=== PATIENT | female | born 1960 | race Caucasian/White ===

== ENCOUNTER 2016-12-15 06:05 | Inpatient (IN) | payer OTHER ==
[~2016-12-15 06:05] MED LIST: CLINDAMYCIN PHOSPHATE 900 MG in DEXTROSE 5 % IN WATER 100 ML IV PRN; RINGER'S SOLUTION,LACTATED 1,000 ML IV PRN; ROPIVACAINE HCL/PF 100 MG, EPINEPHrine 0.2 MG in NORMAL SALINE 100 ML IJ PRN; TRANEXAMIC ACID 1,000 MG in NORMAL SALINE 100 ML IV PRN
[2016-12-15] MEDS ORDERED: RINGER'S SOLUTION,LACTATED 1,000 ML IV ONE ×2 (09:01→10:00)
[2016-12-15] MEDS ORDERED: ZOLPIDEM TARTRATE 5 MG TABLET PO PRN (09:58)
[2016-12-15] MEDS ORDERED: MAG HYDROX/ALUMINUM HYD/SIMETH 30 ML UDC PO PRN (09:58)
[2016-12-15] MEDS ORDERED: DEXTROSE 5%-LACTATED RINGERS 1,000 ML IV PRN (09:58)
[2016-12-15] MEDS ORDERED: MAGNESIUM HYDROXIDE 30 ML UDC PO PRN (09:58)
[2016-12-15] MEDS ORDERED: PROMETHAZINE HCL 5 MG in DEXTROSE 5 % IN WATER 50 ML IV PRN ×2 (09:58)
[2016-12-15] MEDS ORDERED: ONDANSETRON HCL/PF 2 MG/ML VIAL IV PRN (09:58)
[2016-12-15] MEDS ORDERED: BUTORPHANOL TARTRATE NS PRN (10:00)
--- NOTE | 2016-12-15 10:02 | OR ---
Operative Report - Dictated Report Narrative: Date: 12/15/2016 Preoperative diagnosis: Left Knee degenerative joint disease. Postoperative diagnosis: Left Knee degenerative joint disease. Procedure: Left Total knee arthroplasty. Surgeon: Geoffrey Hyde M.D. Dump Grader: Yassine Donaldson PA-C Anesthesia: Spinal with regional block and local periarticular joint injection. Complications: None Specimens: Bone for disposal. Estimated blood loss: Minimal. Tourniquet time: 72 Minutes at 350 millimeters of mercury. Retained implants: Depuy Attune size 6 left lugged cemented posterior stabilized femoral component. Size 5 fixed-bearing cemented tibial platform. 6 by 5 millimeter posterior stabilized cross-linked tibial insert. 38 millimeter medialized patella button. Indications: Mrs. Ocampo is a 56-year-old female who has had long-standing left knee pain and arthrosis. This patient was followed in my clinic for period of time with significant complaints of left knee pain consistent with arthritic changes. She had failed conservative measures including, but not limited to, activity modification, passage of time, medications, and other conservative measures. Patient wished to proceed with surgical treatment. The risks, benefits, and alternatives were discussed in clinic. The risks of , blood clots, bleeding, infection, nerve/tendon blood vessel/ injury, malposition of components, intraoperative fracture, postoperative limited range of motion, persistent pain, failure of components, and need for additional procedures. Patient wished to proceed consent was obtained after answering all questions. Procedure: After marking the correct extremity on the floor, the patient was taken to the operating room. A timeout was performed. IV antibiotics consisting of clindamycin were administered prior to the procedure. A regional followed by spinal anesthetic was induced by anesthesia, per my request, on the operative table with all bony prominences well-padded. Ugo catheter was placed, and a bump was placed under the operative side buttock. SCDs and DAGO hose were utilized on the nonoperative leg. A well-padded tourniquet was applied to the operative thigh. The operative leg was then pre-scrubbed with alcohol prepped, and draped in a standard sterile fashion. After exsanguinating the extremity with an Esmarch bandage, the tourniquet was inflated. After marking out the anterior knee for standard incision centered over the patella, the skin was incised and dissected down to the joint retinaculum. The joint retinaculum was marked out as well as the horizontal axis of the patella, and a standard medial parapatellar arthrotomy was then made. The most proximal aspect of the quadriceps tendon and the patella tendon insertion were protected from release. A partial synovectomy was performed as well as a resection of the infrapatellar fat pad. The distal femoral fat pad proximal to the trochlea was also resected using cautery. The soft tissues were elevated off the medial aspect of the proximal tibia using a Alejandro elevator ensuring that we did not transect the medial collateral ligament. Upon initial evaluation range of motion was approximately 0 degrees to 120 degrees of flexion. There were signs of advanced arthrosis in the medial, lateral, patellofemoral joint spaces. There were large marginal osteophytes which were removed with a rongeur. The knee was hyperflexed and the patella was tucked laterally. Protecting the surrounding soft tissues with Homans, an entry drill was placed down the femoral canal using Whitesides line for guidance into the entry point. The intramedullary femoral alignment ewa was utilized in order to cut the distal femur in 5 degrees of valgus resecting 10 millimeters of bone. Next the distal femur was sized to a size 6. A posterior referencing guide was utilized to place the distal femoral cutting block in 3 degrees of external rotation. This was pinned into place. The rotation was confirmed both visually and based on anatomic landmarks. The 4 in 1 cutting jig of the appropriate size was utilized in order to make all bony cuts. The angle wing was used to ensure no notching. Retractors were utilized in order to protect surrounding soft tissues. This cut did not result in any excessive notching. We then cut the box centered over the distal femur. This allowed for resection of the anterior and posterior cruciate ligaments. I then turned my attention to the preparation of the tibia. Using an extra medullary tibial alignment ewa, 2 millimeters of bone was resected off the medial articular surface. This was made perpendicular to the mechanical axis of the joint with the alignment ewa centered over the ankle mortise. The alignment ewa was checked and was noted to be parallel to the mechanical axis, centered over the medial one third of the tibial tubercle, paralleling the anterior surface of the tibia. We then turned our attention to the remaining meniscus and soft tissues. These were removed while protecting the surrounding ligaments and soft tissues. The marginal osteophytes off the anterior, posterior, medial, lateral aspects of the femur and tibia were removed. The tibia was sized out to a size 5. Next the tibia was drilled and punched in an externally rotated position. Next the trial femur and a series of tibial inserts were utilized in order to allow for full extension and maximal flexion. It was found that a 5 millimeter insert gave the best range of motion and stability at multiple flexion points as well as at full extension there was less than 2 mm of gapping both medially and laterally. There is minimal anterior translation with the knee at 90 degrees of flexion and no signs of being able to dislocate the knee. The patella was then prepared. The initial thickness was 22 millimeters. This was reamed down to 11 millimeters parallel to the anterior surface of the patella. It was sized out to a size 38 medialized patella button. This was then drilled and trialed. Without any medial restraint the patella tracked appropriately and did not sublux or dislocate. At this point, it was felt these were the appropriate sized implants, and all trials were removed. The standard periarticular joint injection consisting of ropivacaine and epinephrine were injected into the periarticular joint tissues. The bony surfaces were thoroughly irrigated with a pulsatile-suction saline irrigation device. A bone plug from the prior resected anterior chamfer cut was placed into the drill hole at the distal femur. The bony surfaces were then dried in preparation for placement of the implants. The cement was vacuum mixed per the silver lap machine tender's instructions. The cement was placed on the dry bony surfaces and posterior aspect of the implants. The implants were impacted into place, removing all extruded cement. At this point anesthesia administered tranexamic acid per protocol intravenously. The knee was placed in extension with axial loading with the trial insert while the cement cured. Once the cement cured, all remaining extruded cement was removed. The knee was placed through a range of motion with the trial insert to ensure appropriate range of motion and stability. Final range of motion was approximately 0 to 120 degrees. The knee was again thoroughly irrigated with pulsatile saline lavage. The final polyethylene insert was then impacted into place ensuring no retained soft tissues. The remaining periarticular joint injection was injected. A medium Hemovac drain was placed exiting superior laterally. The knee was then placed over a triangle and the arthrotomy was closed with interrupted #1 Vicryl after thoroughly irrigating the joint. The deep and subcutaneous tissues were closed with interrupted 0 and 3-0 Vicryl respectively. Skin was closed with a running subcutaneous 3-0 Monocryl and Prineo Dermabond dressing. 4 x 4's, Sof-Rol, and a full leg Jose wrap were applied. All sponge, needle, blade, and instrument counts were correct prior to closing the wounds. Postoperative condition: The patient was awoken and transferred to the postanesthesia care unit in stable condition. Plan is to be admitted to the inpatient medical/surgical floor postoperatively for 24 hours of IV antibiotics , physical therapy, occupational therapy, and medical comanagement. Patient will be weightbearing as tolerated with range of motion as tolerated. DVT prophylaxis will be with SCDs, DAGO hose, and pharmacological anticoagulation. Anticipated hospital stay is approximately 2-4 days.
--- NOTE | 2016-12-15 10:44 | OR ---
Anesthesia Procedure Note - Anesthesia Procedure Note Date of Service: 12/15/16 Narrative: Vital Signs - Last Taken Temp 36.4 C L 12/15/16 10:37 Pulse 62 12/15/16 10:37 Resp 16 12/15/16 10:37 BP 86/47 12/15/16 10:37 Pulse Ox 96 12/15/16 10:37 O2 Oxygen Delivery Method Nasal Cannula 12/15/16 10:42 ANESTHESIA PROCEDURE NOTE Date of Procedure: 12/15/2016 Time of procedure: . Performed by: CATRACHITO Currie CRNA, MSN Injection Operator: Lizet Schmidt RN. Preprocedure diagnosis: Pain relief status post left total knee arthroplasty. Post procedure diagnosis: Same. Procedure: Left femoral nerve block. Indications: Post left total knee arthroplasty pain relief. Findings: See below. Details of the procedure: The patient was brought to OR #4 and placed in supine position. The patient's left femoral area was prepped with chlorhexidine and using ultrasound guidance the left femoral artery and nerve was identified and lidocaine 1% was infiltrated to the skin of the intended injection site. Under ultrasound guidance the femoral nerve was approached with visualization of a 2 inch shield block needle until a thigh/leg response was identified on nerve stimulator. Once the stimulator response was effective at less than 0.5 mV and greater than 0.3 mV with the needle visualized, the femoral nerve was surrounded with 30 mL bupivacaine 0.25% with 1-200,000 epinephrine. Please see radiology/ultrasound report for details and retained images of the procedure. EBL: 0 Fluids: N/A. Specimen: N/A. Post procedure condition: The patient tolerated the procedure well. No complications were noted. Thank you for this consultation. Jorge Hoang CRNA, SHEET ROCK FINISHER, MSN
[2016-12-15] MEDS: HYDROmorphone HCL 2 MG TABLET PO PRN (15:18)
[2016-12-15] MEDS: HYDROmorphone HCL 1 MG/ML DISP.SYRIN IV PRN ×3 (16:47→22:06)
[2016-12-15] MEDS ORDERED: CLINDAMYCIN PHOSPHATE 900 MG in DEXTROSE 5 % IN WATER 100 ML IV SCH ×2 (19:58)
[2016-12-15] MEDS: diphenhydrAMINE HCL 50 MG/ML VIAL IV PRN (22:03)
[2016-12-15] MEDS: SENNOSIDES/DOCUSATE SODIUM 1 TAB TABLET PO SCH (22:08)
[2016-12-16] MEDS: HYDROmorphone HCL 1 MG/ML DISP.SYRIN IV PRN ×3 (01:52→06:50)
[2016-12-16] MEDS: diphenhydrAMINE HCL 50 MG/ML VIAL IV PRN (02:16)
[2016-12-16 05:53] LABS: Hematocrit 40.5 % (37.0-47.0); Mean Corpuscular Hemoglobin 30.4 pg (27-31); Mean Corpuscular Hgb Conc 34.6 g/dl (32-36); Platelet Count 159 K/mm3 (150-450); Red Cell Distribution Width 13.3 % (11.5-14.0); White Blood Count 8.5 K/mm3 (4.0-10.5)
[2016-12-16 06:58] LABS: Anion Gap 9.4 mmol/L (6.8-13.8); BUN/Creatinine Ratio 11.4 (9.0-21.6); Calcium * 8.5 mg/dL (7.9-10.9); Carbon Dioxide 27.1 mmol/L (24-32.6); Estimated Creat Clear 66.8; Potassium 4.5 mmol/L (3.4-4.6)
--- NOTE | 2016-12-16 08:11 | PN ---
Subjective - Date and Time Seen Date: 12/16/16 Time: 08:08 Subjective Narrative: Subjective: Reports pain. Was able to get to the chair with therapy. Voiding without any complications. Tolerating by mouth intake. Denies any nausea or vomiting. Denies calf pain. Slept well. Physical exam: Alert and oriented to person, place and time Left lower Extremity: Palpable dorsalis pedis pulse. Sensation grossly intact to light touch. Dressings clean and dry. Able to flex and extend ankle and toes. No excessive drainage. Calf and thigh are soft and nontender. Assessment: Postop day 1 status post left total knee arthroplasty. Plan: Continue with physical and occupational therapy weightbearing as tolerated. Continue with anticoagulation. 24 hours postoperative prophylactic antibiotics. Pain control with goal to rely on oral medications - she has multiple reported allergies to just about all pain medicines including both narcotic and nonnarcotic. We discussed that this makes it significantly more difficult to control her pain and unfortunately she may have to put up with more pain than is ideal. If we need to we will adjust her oral short-acting narcotics. Continue bowel regimen. Will need 6 weeks with walker or assitive device to protect joint while ambulating during the recovery process. Discharge planning. Discontinue drain and Guo catheter. Repeat labs in a.m. Objective - Vitals Vitals: Last Vital Signs Temp 36.8 C 12/16/16 06:18 Pulse 93 12/16/16 06:18 Resp 21 H 12/16/16 06:18 BP 163/88 12/16/16 06:18 Pulse Ox 91 12/16/16 06:18 - Abnormal Lab Findings Abnormal Lab Findings: Abnormal Lab Results 12/16/16 Range/Units 05:40 MPV 10.0 H (6.0-9.5) fl Cauti Physician Documentation - Urinary Catheter Management Urethral (Guo) Date of Insertion: 12/15/16 Time of Insertion: 08:30 Assessment/Plan - Problems/Diagnosis (1) Acute blood loss anemia Problem: Acute (2) Status post total left knee replacement Problem: Acute (3) Diverticulitis Problem: Chronic
[2016-12-16] MEDS: ENOXAPARIN SODIUM 40 MG/0.4 ML SYRG SC SCH (08:38)
[2016-12-16] MEDS: MULTIVITAMINS 1 CAP CAPSULE PO SCH (08:39)
[2016-12-16] MEDS: HYDROmorphone HCL 2 MG TABLET PO PRN (08:56)
[2016-12-16] MEDS: BUTORPHANOL TARTRATE 2 MG/ML VIAL IV PRN ×3 (11:26→22:56)
--- NOTE | 2016-12-16 12:36 | PN ---
Subjective - Date and Time Seen Date: 12/16/16 Time: 12:35 Subjective Narrative: Patient seen and examined at bedside. Patient states she is in a lot of pain this AM and her current pain regimen does not seem to be controlling her pain. Otherwise, she denies any other concerns at this time. Objective - Review of Systems Generalized/Overall Review: Reports: No Symptoms Reported EENTM: Reports: No Symptoms Reported Respiratory: Reports: No Symptoms Reported Cardiac: Reports: No Symptoms Reported Abdominal: Reports: No Symptoms Reported Genitourinary Symptoms: Reports: No Symptoms Reported Musculoskeletal Complaints: Reports: Joint Pain Neurological: Reports: No Symptoms Reported Skin: Reports: No Symptoms Reported Endocrine: Reports: No Symptoms Reported Misc: All systems neg except as marked - Vitals Vitals: Last Vital Signs Temp 36.6 C 12/16/16 10:31 Pulse 101 H 12/16/16 10:31 Resp 20 12/16/16 10:31 BP 156/87 12/16/16 10:31 Pulse Ox 93 12/16/16 10:52 - Abnormal Lab Findings Abnormal Lab Findings: Abnormal Lab Results 12/16/16 Range/Units 05:40 MPV 10.0 H (6.0-9.5) fl - Exam Constitutional: Present: Alert, Oriented x3, Cooperative, Well developed, Mild distress - appears uncomfortable secondary to pain, Obese ENT Exam: Present: hearing grossly normal, moist mucous membranes Respiratory: Present: lungs clear, normal breath sounds, no respiratory distress , no accessory muscle use Cardiovascular/Chest: Present: regular rate, rhythm Abdomen: Present: soft, nontender, nondistended, hypoactive Extremity: Present: other - s/p left TKA with dressings in place Skin Exam: Present: warm/dry, no cyanosis Neurologic: Present: no motor/sensory deficits, alert, normal mood/affect, oriented x 3 Appearance: Present: appropriate appearance, appropriate insight, neat, no memory impairment Eye contact: Present: cooperative, good eye contact, normal speech Thoughts: Present: normal thought pattern, no apparent hallucination Cauti Physician Documentation - Urinary Catheter Management Urethral (Guo) Date of Insertion: 12/15/16 Time of Insertion: 08:30 Date of Removal: 12/16/16 Time of Removal: 08:36 Assessment/Plan Plan Narrative: Adjust pain medication in an attempt to achieve better pain control which may be difficult given the patient's multiple allergies. Patient is on butorphanol nasal spray at home for pain which she states is effective. We do not have the nasal spray but we do have the IV form. The patient's will bring in the nasal spray this afternoon/evening for the patient to use and in the meantime we will try to get better pain control with IV butorphanol. Continue to work with PT/OT. Start IS Q1h while awake. - Problems/Diagnosis (1) Status post total left knee replacement Problem: Acute (2) Acute blood loss anemia Problem: Acute
[2016-12-16] MEDS: SENNOSIDES/DOCUSATE SODIUM 1 TAB TABLET PO SCH (20:10)
[2016-12-17] MEDS: BUTORPHANOL TARTRATE 2 MG/ML VIAL IV PRN ×3 (03:36→12:24)
[2016-12-17 05:46] LABS: Hematocrit 42.1 % (37.0-47.0); Hemoglobin 14.6 gm/dL (12.5-16.0); Mean Cell Volume 85.6 fl (78-100); Mean Corpuscular Hemoglobin 29.7 pg (27-31); Mean Corpuscular Hgb Conc 34.7 g/dl (32-36); Mean Platelet Volume 10.2 fl (6.0-9.5); Platelet Count 170 K/mm3 (150-450); Red Blood Count 4.92 M/mm3 (4.2-5.4); Red Cell Distribution Width 12.8 % (11.5-14.0); White Blood Count 10.7 K/mm3 (4.0-10.5)
[2016-12-17 06:06] LABS: Anion Gap 15.8 mmol/L (6.8-13.8); BUN/Creatinine Ratio 8.2 (9.0-21.6); Calcium * 9.1 mg/dL (7.9-10.9); Carbon Dioxide 23.9 mmol/L (24-32.6); Estimated Creat Clear 80.6; Potassium 3.7 mmol/L (3.4-4.6)
[2016-12-17] MEDS: ENOXAPARIN SODIUM 40 MG/0.4 ML SYRG SC SCH (08:56)
[2016-12-17] MEDS: MULTIVITAMINS 1 CAP CAPSULE PO SCH (08:56)
--- NOTE | 2016-12-17 12:08 | PN ---
Subjective - Date and Time Seen Date: 12/17/16 Time: 10:30 Subjective Narrative: Patient seen and examined at bedside. Patient states that she is still having a fair amount of pain but admits that her pain is much better than it was yesterday. After reviewing RN notes, it appears the patient has been pretty sleepy and appears comfortable yesterday afternoon/evening and overnight. Objective - Review of Systems Generalized/Overall Review: Reports: No Symptoms Reported EENTM: Reports: No Symptoms Reported Respiratory: Reports: No Symptoms Reported Cardiac: Reports: No Symptoms Reported Abdominal: Reports: No Symptoms Reported Genitourinary Symptoms: Reports: No Symptoms Reported Musculoskeletal Complaints: Reports: Joint Pain Neurological: Reports: No Symptoms Reported Skin: Reports: No Symptoms Reported Endocrine: Reports: No Symptoms Reported Misc: All systems neg except as marked - Vitals Vitals: Last Vital Signs Temp 36.6 C 12/17/16 07:47 Pulse 104 H 12/17/16 07:47 Resp 16 12/17/16 07:47 BP 148/92 12/17/16 07:47 Pulse Ox 92 12/17/16 07:47 - Abnormal Lab Findings Abnormal Lab Findings: Abnormal Lab Results 12/17/16 12/17/16 Range/Units 05:43 05:43 WBC 10.7 H D (4.0-10.5) K/mm3 MPV 10.2 H (6.0-9.5) fl Carbon Dioxide 23.9 L (24-32.6) mmol/L Anion Gap 15.8 H (6.8-13.8) mmol/L BUN/Creatinine Ratio 8.2 L (9.0-21.6) Random Glucose 112 H (70-110) mg/dL - Exam Constitutional: Present: Alert, Oriented x3, Cooperative, Mild distress - secondary to left knee pain, Obese ENT Exam: Present: hearing grossly normal, moist mucous membranes Respiratory: Present: lungs clear, normal breath sounds, no respiratory distress , no accessory muscle use Cardiovascular/Chest: Present: regular rate, rhythm Abdomen: Present: soft, nontender, nondistended, hypoactive Extremity: Present: other - s/p left TKA Neurologic: Present: alert, normal mood/affect, oriented x 3 Appearance: Present: appropriate appearance, no memory impairment Eye contact: Present: cooperative, good eye contact, normal speech Thoughts: Present: normal thought pattern, no apparent hallucination Cauti Physician Documentation - Urinary Catheter Management Urethral (Guo) Date of Insertion: 12/15/16 Time of Insertion: 08: Date of Removal: 12/16/16 Time of Removal: 08:36 Assessment/Plan Plan Narrative: Unfortunately the patient's never brought her home pain medication so I met with him today and gave him a new Rx to go to [facility] and sheepskin pickler so that we can start to taper the patient off IV pain meds and get her pain controlled on a regimen she can be discharged home on. Continue to work with PT/OT. Continue IS Q1h while awake. - Problems/Diagnosis (1) Status post total left knee replacement Problem: Acute (2) Acute blood loss anemia Problem: Acute
[2016-12-17 12:22] VITALS: BP 130/90
--- NOTE | 2016-12-17 14:31 | DS ---
(1) Status post total left knee replacement Problem: Acute (2) Diverticulitis Problem: Chronic Description of Stay: Mrs. Ocampo was admitted to the floor after undergoing left total knee arthroplasty. Tolerated this well. Was admitted to the floor postoperatively for 24 hours of IV antibiotics, pain control, medical comanagement, and occupational and physical therapy. OT and PT were consulted to assist with activities of daily living and ambulation. Was made weightbearing as tolerated with range of motion as tolerated. Pain was initially controlled with IV regimen. This was transitioned to oral once tolerating a by mouth intake. Was resumed on home diet and medications. Had a Guo catheter inserted and the operating room which was discontinued on postoperative day 1. A drain was placed intraoperatively into the knee which was discontinued on postoperative day 1. Lovenox SCD and DAGO hose were utilized for DVT prophylaxis. Vital signs remained stable to the hospital course. Serial labs were obtained which showed a final hemoglobin of 14.6 grams. BMP was reviewed and was stable. Physical examination throughout the hospital course showed an extremity that had sensation that was intact to light touch, palpable pulses, a benign wound, motor intact to the toes, ankle, and knee. Knee range of motion was approximately 5 degrees to 70 degrees. Once an oral pain regimen was tolerated and physical therapy goals were met, it was felt that they were stable for discharge to home. Instructions: Continue with weightbearing as tolerated and range of motion as tolerated. It is OK to shower on the wound if it is not draining. If you note any drainage or for comfort you can cover with dry gauze and tape. Change every 2-3 days as needed. Continue with physical therapy. Resume home diet. Report any fever over 101.5 Fahrenheit, uncontrolled pain, increased drainage, foul odor of drainage, new or increased calf pain or shortness of breath, or any other significant complaints. A 325mg dialy aspirin will be started after finishing anticoagulation if not allergic. Continue with DAGO hose on the operative extremity until instructed otherwise. No driving until instructed otherwise. Follow up in approximately 10-14 days. Procedures Performed: see notes below List Procedures: Left total knee arthroplasty Discharge Disposition: Home self care Disposition: Home self-care Condition: Good Discharge Activity: Activity as tolerated, Weight bearing Discharge Diet: General/regular food Referrals: Zee Osuna DO [Primary Care Provider] - Additional Patient Instructions (free text): Follow up with Dr. Hyde on December at 09:45 am. [facility] at discharge. Please call report and fax orders and face to face upon discharge. Prescriptions (Any new or edited meds): Enoxaparin Sodium [Lovenox] 40 mg SC Q24H #7 disp.syrin Sennosides/Docusate Sodium [Senokot-S] 2 tab PO HS #30 tablet Complete Home Medications List: Complete Home Medication List: Butorphanol Tartrate 1 spray NS DAILY PRN 12/01/16 Multivitamin [Multivitamins] 1 each PO DAILY 12/01/16 Enoxaparin Sodium [Lovenox] 40 mg SC Q24H #7 disp.syrin 12/17/16 Sennosides/Docusate Sodium [Senokot-S] 2 tab PO HS #30 tablet 12/17/16 Amb Orders for Discharge: PT Evaluation and Treatment Facility: [facility], Location: Rehabilitation Services
== END 2016-12-17 16:45 | disposition home health service (06) | DRG 470 ==
LOC: MS 06:05
PROVIDERS: ADMIT Orthopaedic Surgery; ATTEND Orthopaedic Surgery
PROC: 0SRD0J9 Replacement of Left Knee Joint with Synthetic Substitute, Cemented, Open Approach (ICD-10-PCS; principal; 2016-12-15 08:00)
DX: M17.0 Bilateral primary osteoarthritis of knee (principal); D62 Acute posthemorrhagic anemia; K57.92 Diverticulitis of intestine, part unspecified, without perforation or abscess without bleeding; D75.1 Secondary polycythemia